=== PATIENT | female | born 1995 | race Caucasian/White ===

== ENCOUNTER 2022-02-08 08:13 | Outpatient (CLI) | payer BC, SELFPAY ==
--- OUTSIDE RECORDS SUMMARY | 2022-02-08 08:16 | XMS_ITS | Clinical Summary ---
:1995 Author Organization [facility] [place] [address] Care Team Providers Name Role Phone Shabnam Denia Fajardo PA-C Primary Care Provider Allergies No known active allergies Medications Medication Sig Dispensed Refills Start Date End Date Status etonogestrel subdermal implant 0 0 Active (NEXPLANON) 68 mg implant SUMAtriptan (IMITREX) 50 mg tablet 0 10/13 Active SUMATRIPTAN SUCCINATE ORAL 0 03/31/2018 Active Active Problems No known active problems Social History Tobacco Use Types Packs/Day Years Used Date Never Smoker Smokeless Tobacco: Never Used Alcohol Use Standard Drinks/Week Comments Yes 3 (1 standard drink = 0.6 oz pure alcoho l) 3 drinks/week Alcohol Habits Answer Date Recorded How often do you have a drink containing alcohol? Not asked How many drinks containing alcohol do you have on a Not aske d typical day when you are drinking? How often do you have six or more drinks on one occasion? No t asked Comment: 3 drinks/week 05/08/2021 Sex Assigned at Date Recorded Not on file Obstetrics History Comments LMP= pt is currently on Last Filed Vital Signs Vital Sign Reading Time Taken Comments Blood Pressure 114/80 05/08/2021 11:01 AM ACCESS CLINICIAN Pulse 89 05/08/2021 11:01 AM ACCESS CLINICIAN Temperature 36.3 ??C (97.3 ??F) 05/08/2021 11:01 AM ACCESS CLINICIAN Respiratory Rate 14 05/08/2021 11:01 AM ACCESS CLINICIAN Oxygen Saturation 97% 05/08/2021 11:01 AM ACCESS CLINICIAN Inhaled Oxygen Concentration - - Weight 79.4 kg (175 lb) 05/08/2021 11:01 AM ACCESS CLINICIAN Height 165.1 cm (5' 5) 05/08/2021 11:01 AM ACCESS CLINICIAN Body Mass Index 29.12 05/08/2021 11:01 AM ACCESS CLINICIAN Plan of Treatment Health Maintenance Due Date Last Done Comments COVID-19 vaccine series (#1) 05/18/1997 HPV series for age 9-26 (1 - 2-dose 11/16/2007 series) Tdap 11/16/2007 Depression screening for age 12+ 2008 Hepatitis C screening for age 18-79 2014 Tetanus booster 2016 Influenza for age 9-49 11/29/2021 BMI (ht and wt on same day) for age 18+ 05/08/2022 05/08/19 22 Pap test for age 21-65 02/06/2024 02/05/2021, 03/16/2018 Results Not on filefrom Last 3 Months Insurance Payer Benefit Plan / Subscriber ID Effective Dates Phone Addre ss Type Group WC WORKERS WC JOAQUÍN [id number] 2019-Prese [address] [place] [address] BLUE CROSS BLUE CROSS [id number] 2021-Presen [place] [employer] t CLAIMS PLAN [address] [address] [place] [address] Care Teams Perinatal Breastfeeding Assistant Relationship Specialty Start Date End Date Denia Haque PA-C PCP - General Physician Applications Support Analyst 02/13/[address] [place] [id number]
[2022-02-08 13:33] LABS: Chlamydia DNA Amplified* NOT DETECTED (No Detected); GC DNA Amplified* NOT DETECTED (No Detected)
== END 2022-02-08 08:14 | disposition home or self-care (01) ==
PROVIDERS: PCP Physician Assistant Medical; Visit Provider Registered Nurse
DX: N92.0 Excessive and frequent menstruation with regular cycle (principal); N93.9 Abnormal uterine and vaginal bleeding, unspecified; Z11.3 Encounter for screening for infections with a predominantly sexual mode of transmission
CPT/HCPCS: 84443; 87491; 87591

== ENCOUNTER 2023-04-21 08:07 | Outpatient (CLI) | payer BC, SELFPAY ==
--- OUTSIDE RECORDS SUMMARY | 2023-04-22 06:54 | XMS_ITS | Clinical Summary ---
Author Name Unknown Organization [facility] Address [place], [place] [address] Care Team Providers Care Quarrying Specialist Name Role Phone EsauDenia zepeda AARON Primary Care Provider [phone]- [phone] Allergies No known active allergies Medications Medication Sig Dispensed Refills Start Date End Date Status etonogestrel subdermal implant (NEXPLANON) 68 mg implant 0 11/30/2019 Active SUMAtriptan (IMITREX) 50 mg tablet 0 10/13/2020 Active SUMATRIPTAN SUCCINATE ORAL 0 03/31/2018 Active Active Problems No known active problems Social History Tobacco Use Types Packs/Day Years Used Date Smoking Tobacco: Never Smokeless Tobacco: Never Alcohol Use Standard Drinks/Week Comments Yes 3 (1 standard drink = 0.6 oz pur e alcohol) 3 drinks/week Social Connections Answer Date Recorded Frequency of Communication with Friends and Fami ly Not on file 06/29/2022 Financial Resource Strain Answer Date R ecorded Difficulty of Paying Living Expenses 3 05/08/2021 Difficulty of Paying Living Expenses Not on file 05/08/2021 Food Insecurity Answer Date Recorded Worried About Running Out of Food in the Last Ye ar 1 05/08/2021 Transportation Needs Answer Date Record ed Lack of Transportation (Medical) 1 05/08/2021 Housing Stability Answer Date Recorded Unable to Pay for Housing in the Last Year 1 05/08/2021 Sex and Gender Information Value Date Recorded Sex Assigned at Not on file Gender Identity Not on file Sexual Orientation Not on file Obstetrics History Comments LMP= pt is currently on Last Filed Vital Signs Vital Sign Reading Time Taken Comments Blood Pressure 114/80 05/08/2021 11:01 AM SOLO TRUCK DRIVER Pulse 89 05/08/2021 11:01 AM SOLO TRUCK DRIVER Temperature 36.3 ??C (97.3 ??F) 05/08/2021 11:[address] Respiratory Rate 14 05/08/2021 11:01 AM SOLO TRUCK DRIVER Oxygen Saturation 97% 05/08/2021 11:01 AM SOLO TRUCK DRIVER Inhaled Oxygen Concentration - - Weight 79.4 kg (175 lb) 05/08/2021 11:01 AM SOLO TRUCK DRIVER Height 165.1 cm (5' 5) 05/08/2021 11:01 AM SOLO TRUCK DRIVER Body Mass Index 29.12 05/08/2021 11:01 AM SOLO TRUCK DRIVER Plan of Treatment Health Maintenance Due Date Last Done Comments COVID-19 vaccine series (#1) 05/18/1997 HPV series for age 9-26 (1 - 2-dose series) 11/16/2007 Tdap 11/16/2007 Depression screening for age 12+ 2008 HIV for age 15-65 11/16/2011 Hepatitis C screening for ag e 18-79 2014 Tetanus booster 2016 BMI (ht and wt on same day) for age 18+ 05/08/2022 05/08/2021 Influenza for age 9-49 11/29/2022 Pap test for age 21-65 02/06/2024 , 03/16/2018 Pneumococcal series for age 6-64 Aged Out No longer eligible b ased on patient's age to complete this topic Care Teams Quarrying Specialist Relationship Specialty Start Date End Date FitzlDenia almaraz PA-C [address] [place] [id number] PCP - General Physician [id number]/[id number] Tank Driver 02/13/21
== END 2023-04-21 08:08 | disposition home or self-care (01) ==
LOC: NFLDREF 04-22 06:53
PROVIDERS: PCP Physician Assistant Medical; Referring Provider Physician Assistant Medical; Visit Provider Registered Nurse
DX: Z13.6 Encounter for screening for cardiovascular disorders (principal); Z13.1 Encounter for screening for diabetes mellitus
CPT/HCPCS: 80061; 82947

== ENCOUNTER 2023-07-08 19:21 | Outpatient (CLI) | payer BC, SELFPAY ==
--- OUTSIDE RECORDS SUMMARY | 2023-07-08 19:23 | XMS_ITS | Clinical Summary ---
Author Name Unknown Organization [facility] Address [place], [place] [address] Care Team Providers Care Grain Weigher Name Role Phone Denia Haque AARON Primary Care Provider [phone]- [phone] Allergies No known active allergies Medications Medication Sig Dispensed Refills Start Date End Date Status etonogestrel subdermal implant (NEXPLANON) 68 mg implant 11/30/2019 Active SUMAtriptan (IMITREX) 50 mg tablet 10/13/2020 Active SUMATRIPTAN SUCCINATE ORAL 03/31/2018 Active Active Problems No known active [...] Comments Blood Pressure 114/80 05/08/2021 11:01 AM DRUG ENFORCEMENT AGENT Pulse 89 05/08/2021 11:01 AM DRUG ENFORCEMENT AGENT Temperature 36.3 ??C (97.3 ??F) 05/08/2021 11:[address] Respiratory Rate 14 05/08/2021 11:01 AM DRUG ENFORCEMENT AGENT Oxygen Saturation 97% 05/08/2021 11:01 AM DRUG ENFORCEMENT AGENT Inhaled Oxygen Concentration - - Weight 79.4 kg (175 lb) 05/08/2021 11:01 AM DRUG ENFORCEMENT AGENT Height 165.1 cm (5' 5) 05/08/2021 11:01 AM DRUG ENFORCEMENT AGENT Body Mass Index 29.12 05/08/2021 11:01 AM DRUG ENFORCEMENT AGENT Plan of Treatment Health Maintenance Due Date Last Done Comments Tdap 11/16/2007 Depression screening for age 12+ 2008 HIV for age 15-65 11/16/2011 HPV series for age 9-26 (1 - 3-dose series) 11/16/2011 Hepatitis C screening for ag e 18-79 2014 Tetanus booster 2016 BMI (ht and wt on same day) for age 18+ 05/08/2022 05/08/2021 COVID-19 vaccine series ( season) 2022 Influenza for age 9-49 11/30/2023 Pap test for age 21-65 02/06/2024 , 03/16/2018 Pneumococcal series for age 6-64 Aged Out No longer eligible b ased on patient's age to complete this topic Procedures Procedure Name Priority Date/Time Associated Diagnosis Comments MANAGER TRUST THIN PREP PAP SCREEN IMAGED Routine 02/05/2021 2:00 PM DRUG ENFORCEMENT AGENT from Last 3 Months or Most Recently Relevant to Health Maintenance Results * MANAGER TRUST THIN PREP PAP SCREEN IMAGED (02/05/2021 2:00 PM DRUG ENFORCEMENT AGENT) Case Report Gynecologic Cytology Report ? Case: [id number] ? Authorizing Provider: ??Denia Haque PA-C ?Collected: ? 02/05/2021 1400 ? Ordering Location: ? [facility] ?Received: ?02/06/2021 1741 ? First Screen: ?Jake Fisher ? Specimen: ?MANAGER TRUST ThinPrep Vial Screening ? 02/20/2021 12:56 PM [facility] INTERPRETATION/ RESULT NEGATIVE FOR INTRAEPITHELIAL LESION OR MALIGNANCY (NIL) (none) 02/20/2021 12:56 PM [facility] IMEN ADEQUACY Satisfactory for evaluation No endocervical component seen 02/20/2021 12:56 PM [facility] HPV REQUEST HPV if ASCUS 02/20/2021 12:56 PM [facility] Date of LMP 02/01/2021 02/20/2021 12:56 PM [facility] Last Pap Date 03/16/2018 02/20/2021 12:56 PM [facility] Last Pap Result 12:56 PM [facility] Comment:NL Additional Information 02/20/2021 12:56 PM [facility] Comment: Interpreted at [facility] [place] [address] Automated Review Successful 02/20/2021 12:56 PM [facility] Comment:Specimen processed s uccessfully by automated beach lifeguard device, ThinPrep Imaging System, [employer] Note The pap test is a screening technique, not a diagnostic procedure. It is used primarily to screen for squamous cancers and precursor lesions. Published studies have shown that it is subject to both false negative and false positive results. The pap test should not be used as the sole means to diagnose or exclude pre-malignant and malignant lesions. 02/20/2021 12:56 PM DRUG ENFORCEMENT AGENT [facility] Other 02/05/2021 2:00 PM DRUG ENFORCEMENT AGENT 02/06/2021 5:41 PM DRUG ENFORCEMENT AGENT Denia Haque PA-C PATHOLOGY/CYTOLOGY [facility] [address] [place] [address], from Last 3 Months or Most Recently Relevant to Health Maintenance Care Teams Grain Weigher Relationship Specialty Start Date End Date Denia Haque PA-C [address] [place] [id number] PCP - General Physician Hone Operator 02/13/21
--- NOTE | 2023-07-16 09:25 | W.PM.SLEEP ---
Sleep Study Details Details Interpreting Provider: Jayme Date of Sleep Study: 07/08/23 Sleep Study Details: STUDY TYPE:? Home unattended ? BMI:? 28.3 ORDERING PROVIDER:Rogelio Delacruz INDICATION:? Daytime hypersomnolence, concerns about sleep apnea ? SLEEP SUMMARY:? 525.7 minutes monitored RESPIRATORY SUMMARY:? AHI 1.5 Low oxygen 90 Snoring 52.2% PERIODIC LIMB MOVEMENTS OF SLEEP:? Not recorded during home study CARDIAC:? Range 41-104, mean 65.8 IMPRESSION:? This study does not demonstrate clinically significant obstructive sleep apnea. If sleep disorder is strongly suspected would recommend an in-lab study with MSLT to follow RECOMMENDATION: See above
== END 2023-07-08 19:22 | disposition home or self-care (01) ==
PROVIDERS: PCP Physician Assistant Medical; Visit Provider Otolaryngology
DX: R06.83 Snoring (principal)
CPT/HCPCS: 95806